=== PATIENT | female | born 1990 | race Caucasian/White ===

== ENCOUNTER 2020-05-30 12:32 | Emergency (ER) | payer OTHER ==
[~2020-05-30] VITALS: Ht 162.6 cm; Wt 54.0 kg
[2020-05-30 12:48] VITALS: BP 139/95
== END 2020-05-30 17:07 | disposition home or self-care (01) ==
LOC: ER 12:32
DX: S39.012D Strain of muscle, fascia and tendon of lower back, subsequent encounter (principal); M62.838 Other muscle spasm; X58.XXXD Exposure to other specified factors, subsequent encounter